=== PATIENT | male | born 1980 | race Caucasian/White ===

== ENCOUNTER 2024-06-21 20:52 | Emergency (ER) | payer OTHER, SELFPAY ==
[2024-06-21 21:01] VITALS: BP 180/97; PULSE 109; RESP 20; TEMP 36.8; O2SAT 100; BMI 36.9
--- NOTE | 2024-06-21 21:04 | ED_ITS ---
Discharge Plan Disposition Patient Disposition: Left Against Medical Advice Condition: Fair Prescriptions Prescriptions: New sulfamethoxazole-trimethoprim [Bactrim DS] 800-160 mg tablet 1 tab PO BID 14 Days Qty: 28 0RF cephalexin 500 mg capsule 500 mg PO Q12H 14 Days Qty: 28 0RF Activity Restrictions/Add. Instructions Additional Instructions/Restrictions: Please follow-up with your primary care physician if this gets worse. You may return to our ER at any point you feel necessary. Clinical Impressions Clinical Impression: Cellulitis Instructions Patient Instructions: Cellulitis Print Language Print Language: Swedish Discharge ED Provider: Hadley Espinoza General Adult HPI <Deborah Rincon (ED), BOW MAKING MACHINE OPERATOR - Last Filed: 06/21/24 22:02> General Chief complaint: Extremity Problem,Nontraumatic Stated complaint: Right hand red,swollen denies injury Time Seen by Provider: 06/21/24 20:56 History of Present Illness HPI narrative: 44-year-old male presents to the ED today for complaint of swollen right hand. 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 He says he did use a clean needle and this happened today. He tells me he is very embarrassed and does not want to stay for any labs or ultrasound or any interventions. He denies fevers or chills. No other symptoms at this time. Related Data Previous Rx's ?Medication ?Instructions ?Recorded cephalexin 500 mg capsule 500 mg PO Q12H 14 days #28 caps 06/21/24 sulfamethoxazole 800 1 tab PO BID 14 days #28 tabs 06/21/24 mg-trimethoprim 160 mg tablet (Bactrim DS) Allergies Allergy/AdvReac Type Severity Reaction Status Date / Time No Known Allergies Allergy Verified 06/21/24 21:07 [facility] <Deborah Rincon (ED), BOW MAKING MACHINE OPERATOR - Last Filed: 06/21/24 22:02> [facility] Disclaimer: The information contained in this section may have been updated after the patient was seen, as this information can be updated by other users. Social History (Updated 06/21/24 @ 22:02 by Deborah Rincon (ED), BOW MAKING MACHINE OPERATOR) Smoking Status: Unknown if ever smoked alcohol intake: never current occupational status: other Travel in the last 8 weeks?: None Have you lived/traveled outside [place] in past 30 days?: No Contact w/someone who lives/traveled outside US past 30 days?: No Exposure to someone with infectious disease in past 14 days?: No Do you have a fever (greater than 100.4 F or 38 C)?: No Have you tested positive for COVID-19?: No Exposed to someone with COVID-19 in past 14 days?: No Do you have a sore throat?: No Do you have a cough?: No Do you have any weakness?: No Do you have any diarrhea?: No Are you experiencing any unusual bleeding?: No Do you have any muscle aches/pain?: No Do you have any abdominal pain?: No Are you experiencing loss of taste or smell?: No <Deborah Rincon (ED), BOW MAKING MACHINE OPERATOR - Last Filed: 06/21/24 22:02> ROS Obtained: Yes Systems reviewed as appropriate & no additional complaints except as documented Constitutional Constitutional: Reports as per HPI Physical Exam <Deborah Rincon (ED), BOW MAKING MACHINE OPERATOR - Last Filed: 06/21/24 22:02> General General appearance: alert Head Head exam: normocephalic Eye Eye exam: Present PERRL and EOMI ENT ENT exam: Present mucous membranes moist Neck Neck exam: Present full ROM Respiratory Respiratory exam: Present normal lung sounds bilaterally Cardiovascular Cardiovascular exam: Present tachycardia, +S1 and +S2 Extremities Exam Extremities exam: Present full ROM, tenderness (At right hand and right wrist) and edema (To right wrist and right hand) Neurological Exam Neurological exam: Present alert, oriented X3 and normal gait Skin Skin exam: Present warm and erythema (Right hand is significantly swollen causing fingers to appear white in color and cool to touch pulses present) Medical Decision Making <Deborah Rincon (ED), BOW MAKING MACHINE OPERATOR - Last Filed: 06/21/24 22:02> Medical Records Screening: Per USPSTF and CDC recommendations, given the prevalence of disease in our region, it is our hospital?s policy to screen for HIV and viral Hepatitis for all patients aged 18 and over and those with ongoing risk factors. Sonido Inquiry Pt receiving controlled substance: No Sonido was queried for this patient: No Vital Signs: 06/21/24 21:01 06/21/24 21:20 06/21/24 21:35 Temperature 98.3 F 98.3 F Temperature Source Oral Oral Pulse Rate 108 H Pulse Rate [Apical] 109 H Pulse Rate [Right Radial] 108 H Respiratory Rate 20 20 Blood Pressure 180/97 H Blood Pressure [Right Arm] 180/97 H Blood Pressure Mean [Right Arm] 124 02 Sat by Pulse Oximetry 100 Oxygen Delivery Method Room Air Room Air Orders (Tests/Meds): ED MEDICATIONS Discontinued Medications Generic Name Dose Route Start Last Admin Trade Name Freq PRN Reason Stop Dose Admin Cephalexin HCl 1,000 mg 06/21/24 21:21 06/21/24 21:23 Cephalexin 500mg Capsule PO 06/21/24 21:22 1,000 mg ONCE ONE Administration Trimethoprim/Sulfamethoxazole 1 each 06/21/24 21:21 06/21/24 21:24 Sulfa/Trimethoprim 1 Tablet PO 06/21/24 21:22 1 each ONCE ONE Administration ORDERS Category Date Time Status Consult Call Centre Supervisor [CONS] Routine Cons 06/21/24 21:07 Active POCUS Point of Care (ER Only) Stat Exams 06/21/24 21:01 Taken Medical Decision Narrative: This is a 44-year-old male who presents to the ED for evaluation of his right hand that is swollen with no injury. He does admit to relapsing. He is an IV drug user. 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 His hand has been swollen and he just wants a prescription for antibiotics today. He refuses to stay even after I tried to convince him to stay here for treatment. Dr. Brizuela did ultrasound the hand. Patient wants to leave AMA. <Hadley Espinoza MD - Last Filed: 06/25/24 07:39> Vital Signs: 06/21/24 21:01 06/21/24 21:20 06/21/24 21:35 Temperature 98.3 F 98.3 F Temperature Source Oral Oral Pulse Rate 108 H Pulse Rate [Apical] 109 H Pulse Rate [Right Radial] 108 H Respiratory Rate 20 20 Blood Pressure 180/97 H Blood Pressure [Right Arm] 180/97 H Blood Pressure Mean [Right Arm] 124 02 Sat by Pulse Oximetry 100 Oxygen Delivery Method Room Air Room Air Orders (Tests/Meds): ED MEDICATIONS Discontinued Medications Generic Name Dose Route Start Last Admin Trade Name Freq PRN Reason Stop Dose Admin Cephalexin HCl 1,000 mg 06/21/24 21:21 06/21/24 21:23 Cephalexin 500mg Capsule PO 06/21/24 21:22 1,000 mg ONCE ONE Administration Trimethoprim/Sulfamethoxazole 1 each 06/21/24 21:21 06/21/24 21:24 Sulfa/Trimethoprim 1 Tablet PO 06/21/24 21:22 1 each ONCE ONE Administration ORDERS Category Date Time Status Consult Call Centre Supervisor [CONS] Routine Cons 06/21/24 21:07 Active POCUS Point of Care (ER Only) Stat Exams 06/21/24 21:01 Taken Medical Decision Narrative: This is a 44-year-old male who presents to the ED for evaluation of his right hand that is swollen with no injury. He does admit to relapsing. He is an IV drug user. 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 His hand has been swollen and he just wants a prescription for antibiotics today. He refuses to stay even after I tried to convince him to stay here for treatment. Dr. Brizuela did ultrasound the hand. Patient wants to leave AMA. I independently examined and interviewed patient. Being respectful, but states that he is embarrassed, does not want to stay. He wants his oral antibiotics. Bedside [id number] ultrasound was performed and patient has significant amount of cellulitis in his hand, wrist, digits, no evidence of phlegmon or abscess. The patient left AGAINST MEDICAL ADVICE after a thorough discussion of the risks of doing so, including a discussion of potential alternative plans. These risks include but are not limited to clinical decompensation, medical terminologist disability and . The patient appears capable of making this decision. I have advised the patient to immediately return if there are any further problems or if they change their mind about seeking further care. Hadley Espinoza MD Procedures <Hadley Espinoza MD - Last Filed: 06/25/24 07:39> Limited Ultrasound Indication:: Limited soft tissue ultrasound Indication: Right hand swelling, pain, redness, warmth Identified structures: Location: Soft tissue of right hand Findings: Significant extensive cellulitis without evidence of abscess or gas Impression: Cellulitis without complication Images were saved to permanent archive The study was technically adequate Soft Tissue CPT Codes: CPT Neck: 92449-87 CPT Upper extremity: 78832-80 CPT Axilla: 15396-16 CPT Chest wall: 02601-06 CPT Breast: 38995-74-FA/LT (complete), 26833-09-YK/LT (limited), CPT Upper Back: 45369-97 CPT Lower Back: 39654-37 CPT Abdominal Wall: 87022-39 CPT Pelvic Wall: 67463-99 CPT Lower Extremity: 06517-15 CPT Other Soft Tissue: 28378-66 This study was performed by me, and I personally interpreted all images/videos. Based on my clinical judgement, these images were adequate and did not necessitate further imaging. Critical Care <Deborah Rincon (ED), BOW MAKING MACHINE OPERATOR - Last Filed: 06/21/24 22:02> Critical Care Time Critical Care Time: No
[2024-06-21 21:20] VITALS: PULSE 108
[2024-06-21] MEDS: cephALEXin 500MG CAPSULE 1000 MG PO (21:23)
[2024-06-21] MEDS: SULFA/TRIMETHOPRIM 1 TABLET 1 EACH PO (21:24)
[2024-06-21 21:35] VITALS: BP 180/97; PULSE 108; RESP 20; TEMP 36.8; O2SAT 100
--- NOTE | 2024-06-24 14:26 | PEERSUPPORT ---
Peer Support Note Patient Information Patient Information: DOS: 06/24/2024 Ps consult Follow up via phone call Pt stated his hand was still swollen, and red. -He is taking his antibiotics daily, seeing some improvement. -He has been able to refrain from using, stated he was stupid doing it in the first place. Ps shared personal experience relevant to build awareness to recovery community and treatment available such as outpatient treatment, local AA meetings and celebrate recovery meetings. Ps also shared education on JOSE and importance of continued support in balance to risk of continued use. Pt is receptive, expressing gratitude for supportive call, stated he will report to [facility] [employer] as a walk in if and when he needs, but at this point he is finished and not going to use.
--- NOTE | 2024-06-27 12:46 | PEERSUPPORT ---
Peer Support Note Patient Information Patient Information: DOS: 06/27/2024 Ps follow up Pt stated he returned to the ED with pain in wrist, left AMA after being told he was going to be admitted and transferred with possible infection in wrist joint. Pt went home, prayed and woke up the next morning feeling relief with less pain. He is considering coming back to ED if pain does worsen or when he runs out of anitbiotics and feels he needs more. Pt has extensive history with infection in thigh being surgically removed, that resulted in him leaving AMA from ED on 06/24/2024. Ps encourages him to return if pain or swelling worsens. Pt is taking medication as prescribed and seeing improvement. Pt receptive and appreciative of the supportive call. He is aware of treatment options stated he would call if and when he needs an outpatient program but until then stated by this last week he is reminded of why he never wants to return to using. Ps will continue to follow up offering recovery focused support.
== END 2024-06-21 21:28 | disposition left against medical advice (07) ==
PROVIDERS: Emergency Provider Emergency Medicine
DX: L03.113 Cellulitis of right upper limb (principal)
CPT/HCPCS: 99284

== ENCOUNTER 2024-06-24 23:56 | Emergency (ER) | payer OTHER, SELFPAY ==
--- NOTE | 2024-06-25 00:10 | [facility].EDGENADL ---
Discharge Plan Disposition Patient Disposition: Left Against Medical Advice Condition: Undetermined Prescriptions Prescriptions: No Action sulfamethoxazole-trimethoprim [Bactrim DS] 800-160 mg tablet 1 tab PO BID 14 Days Qty: 28 0RF cephalexin 500 mg capsule 500 mg PO Q12H 14 Days Qty: 28 0RF Referrals Follow up/Referrals: Provider,Referral, [Primary Care Provider] - See instructions Activity Restrictions/Add. Instructions Additional Instructions/Restrictions: You are leaving the ER AGAINST MEDICAL ADVICE. Please continue any home medications that have been previously prescribed. Please immediately return to the ER for appropriate evaluation and workup since you are leaving AGAINST MEDICAL ADVICE. Clinical Impressions Clinical Impression: Cellulitis, Pain in right wrist, Active intravenous drug use Print Language Print Language: Moh[place] Discharge ED Provider: Faye Oliva Adult HPI General Stated complaint: R hand infection, pain worsened Time Seen by Provider: 06/25/24 00:02 History of Present Illness HPI narrative: 44-year-old male with active IV drug use and known cellulitis of the right hand presents to the ER for complaints of persistent pain. Patient is right-hand dominant. Patient was evaluated in this ER a few days ago and was recommended to have labs and IV antibiotics but refused and left AMA, was prescribed oral antibiotics when he left. Patient reports taking the antibiotics as directed and that his swelling is improved but the pain is not any better. He still complains of pain in the right hand and specifically in the right wrist. He denies having fevers. He states he cannot move the wrist hardly at all without severe pain. He has no numbness, tingling, or weakness. He shows me the location over the palmar aspect of the right wrist where he injected IV drugs that he believes caused his infection. He denies fevers or other associated symptoms. He is able to flex and extend the fingers though it causes some discomfort through the wrist when doing so. Related Data Previous Rx's ?Medication ?Instructions ?Recorded cephalexin 500 mg capsule 500 mg PO Q12H 14 days #28 caps 06/21/24 sulfamethoxazole 800 1 tab PO BID 14 days #28 tabs 06/21/24 mg-trimethoprim 160 mg tablet (Bactrim DS) Allergies Allergy/AdvReac Type Severity Reaction Status Date / Time No Known Allergies Allergy Verified 06/21/24 21:07 [facility] Disclaimer: The information contained in this section may have been updated after the patient was seen, as this information can be updated by other users. Social History (Updated 06/21/24 @ 22:02 by Deborah Rincon (ED), DIVISION CHIEF) Smoking Status: Unknown if ever smoked alcohol intake: never current occupational status: other Travel in the last 8 weeks?: None ROS Obtained: Yes Systems reviewed as appropriate & no additional complaints except as documented Per HPI Physical Exam General General appearance: alert and in no apparent distress Head Head exam: atraumatic and normocephalic Eye Eye exam: Present PERRL and EOMI ENT ENT exam: Present mucous membranes moist Neck Neck exam: Present normal inspection and full ROM Chest Chest inspection: Present symmetric chest wall rise Respiratory Respiratory exam: Present normal lung sounds bilaterally; Absent respiratory distress, wheezes or stridor Cardiovascular Cardiovascular exam: Present regular rate and normal rhythm Abdominal Exam Abdominal exam: Present soft; Absent distention or tenderness Extremities Exam Extremities exam: Present tenderness (Tenderness to palpation over the posterior aspect of the right hand as well as throughout the right wrist with associated), joint swelling (Right wrist swelling and erythema, swelling and erythema of the right hand and fingers without fluctuance) and other (Neurovascularly intact throughout, pain on the posterior aspect of the right hand and wrist, some pain on the palmar aspect but no Kanavel signs or evidence of flexor tensosynovitis; small wound over palmar aspect of right wrist where patient injected IV drugs without fluctuance or purulence associa); Absent full ROM (Range of motion of right wrist severely limited secondary to swelling and pain) Neurological Exam Neurological exam: Present alert and oriented X3; Absent motor sensory deficit Psychiatric Psychiatric exam: Present normal affect and normal mood Skin Skin exam: Present warm and dry Medical Decision Making Medical Records Medical records reviewed: Yes I reviewed the patient's medical records. Screening: Per USPSTF and CDC recommendations, given the prevalence of disease in our region, it is our hospital?s policy to screen for HIV and viral Hepatitis for all patients aged 18 and over and those with ongoing risk factors. MR Comment: I reviewed ER note from 06/21/2024 including that patient went AMA with prescriptions for Bactrim and Keflex after refusing labs or workup Sonido Inquiry Pt receiving controlled substance: No Medical Decision Narrative: In summary, this 44-year-old male with comorbidities and social determinants of health described in the HPI presents to the emergency department today with swelling, pain, redness of the right hand and wrist. On initial evaluation patient is hemodynamically stable, exam notable for swelling, pain, redness of the right hand and wrist with swelling and tenderness of the right wrist with very limited range of motion but neurovascularly intact, no evidence of flexor tenosynovitis. Differential diagnosis includes but is not limited to cellulitis, septic arthritis, I considered abscess but do not appreciate an obvious area of fluctuance, also considered the possibility of sepsis, bacteremia, among others. I recommended to the patient that we place an IV to perform blood work and to obtain x-ray imaging of the right wrist to evaluate for osteomyelitis/bony destruction. I also discussed with him that I have high concern for septic arthritis and that he would need synovial fluid aspiration to test for infection. He is refusing all of this. He stated can't I just get a shot of antibiotics? To which I explained to him that a single dose of antibiotics in this setting was not going to be enough and that I am very concerned about infection in the right wrist joint space itself which requires advanced and prolonged management if identified. I also explained that not identifying or properly treating infection of the joint space can lead to joint space destruction and ultimately a loss of function of the joint/hand. I explained to him that an inappropriately managed infection could also lead to worsening systemic illness and . He understands all of this but still refuses IV, blood work, synovial fluid analysis, imaging. He is refusing all recommended workup. He states he still has oral antibiotics to take and is going to go home and continue taking them. I expressed to him that the oral antibiotics are not adequately managing his infection and will not adequately manage infection within the joint space. He understands this but is still refusing. He would like to leave AGAINST MEDICAL ADVICE. He is alert, oriented, and does not appear intoxicated at this time. Patient was able to explain back to me his condition and the risks of leaving up to and including wosening of condition, severe life altering disability including but not limited to loss of function of the right hand and wrist which is his dominant side, or . Patient was able to provide reason for his decision and clearly express this decision. He has capacity to make this decision and left AGAINST MEDICAL ADVICE. TEDDY Mcfarland at bedside during this conversation. Before patient left, I reiterated to him to please immediately return to the ER for workup which he acknowledged. Critical Care Critical Care Time Critical Care Time: No
[2024-06-25 00:17] VITALS: BP 149/87; PULSE 85; RESP 16; TEMP 36.6; O2SAT 100
[2024-06-25 00:19] VITALS: RESP 16; O2SAT 100; BMI 36.9
== END 2024-06-25 00:20 | disposition left against medical advice (07) ==
PROVIDERS: Emergency Provider Emergency Medicine
DX: L03.113 Cellulitis of right upper limb (principal); M25.531 Pain in right wrist; M79.641 Pain in right hand; F19.10 Other psychoactive substance abuse, uncomplicated
CPT/HCPCS: 99283